=== PATIENT | female | born 2000 | race Caucasian/White ===

== ENCOUNTER 2024-03-16 22:17 | Emergency (ER) | payer OTHER, BC ==
[~2024-03-16] VITALS: Ht 157.4 cm; Wt 50.8 kg
[2024-03-16] MEDS ORDERED: Tdap Vaccine 0.5 ML SYR (Adult Vaccine) IM ONE (22:50)
[2024-03-16] MEDS ORDERED: NAPROXEN250 MG PO (23:44)
[2024-03-16] MEDS ORDERED: METHOCARBAMOL500 M1 PO (23:44)
[2024-03-16] MEDS ORDERED: Bacitracin Zinc 14 GM TUBE T ONE (23:45)
== END 2024-03-17 00:01 | disposition home or self-care (01) ==
LOC: ED 22:17
DX: S16.1XXA Strain of muscle, fascia and tendon at neck level, initial encounter (principal); S60.222A Contusion of left hand, initial encounter; M54.50 Low back pain, unspecified; X58.XXXA Exposure to other specified factors, initial encounter; Y93.89 Activity, other specified; Y92.410 Unspecified street and highway as the place of occurrence of the external cause; Y99.8 Other external cause status